=== PATIENT | female | born 1990 | race African-American/Black ===

== ENCOUNTER 2017-09-06 15:32 | Outpatient (CLI) | END 2017-09-06 17:00 | disposition home or self-care (01) ==

== ENCOUNTER 2017-09-09 12:00 | Inpatient (IN) | payer BC ==
--- NOTE | 2017-09-06 17:24 | PN ---
Triage Information Date/Time September 06, 2017 Reason for visit: Weeks of Gestation 40 weeks and 1 day /Para 1 para 0 Diabetes: none Hypertention: none Additional information 26-year-old with IUP at 40 weeks and 1 day with care with Dr. Bj reina was sent to labor and delivery for NST/BPP for postdates Patient denies any leaking of fluid, vaginal bleeding uterine contractions or decreased movement. Antepartum course was non-complicated Objective Heart Rate: 140's Contractions: None Exam GA: A&O, NAD Abdomen: Soft, Non tender, Fundal Height consistent with GA NST: Category 1, reactive BPP: 8/8 ARACELIS: 11.6 Results/Medications Imaging Results PROCEDURE: BIOPHYSICAL PROFILE CLINICAL INDICATION: Post dates TECHNIQUE: Transabdominal scan COMPARISON: None FINDINGS: Single live intrauterine , cephalic presentation, fundal placenta to the right of the maternal abdomen, grade II maturation. heart rate 160 3 beats per minute. Amniotic fluid index 11.2. Biophysical profile Gross body movement = 2 tone/reflexes = 2. Breathing = 2 Amniotic fluid index = 2 Total score 8/8 IMPRESSION: Biophysical score 8/8 RPTAT: AAOO Disposition: Discharge Assessment/Plan Postdates testing reassuring Labor precaution and kick counts and follow-up in 3 days with triage for repeat NST BPP discussed kick count discussed Patient verbalized understanding GRAYSON RODRIGUES MD Sep 06, 2017 17:24
[~2017-09-09] VITALS: Ht 157.5 cm; Wt 109.3 kg
[~2017-09-09 12:00] MED LIST: PREN-93 PO
[2017-09-09 12:16] VITALS: Ht 157.5 cm; Wt 109.3 kg
[2017-09-09 12:17] VITALS: BP 104/60; PULSE 136
--- NOTE | 2017-09-09 12:33 | RADRPT ---
PROCEDURE: US biophysical profile. CLINICAL INDICATION: Post dates. 40 weeks 4 days. TECHNIQUE: Multiple sonographic images of the uterus were obtained. The images were revi ewed on a PACS workstation. COMPARISON: No prior studies are available for comparison. FINDINGS: There is a single live intrauterine gestation. heart rate is 146 beats per minute. The position is cephalic. The placenta is fundal grade 1 with no abruption or previa. The ARACELIS is 6.8 cm. (Normal = 5-20 cm.) Breathing Movement: 2 Gross Body Movement: 2 Tone: 2 Qualitative Amniotic Fluid Volume: 2 TOTAL: 8 IMPRESSION: 1. The biophysical score is 8/8. RPTAT: QQ .Andrea Watkins MD, Date Time Electronically viewed and signed by .Andrea Watkins MD, on 09/09/2017 12:33 .R/
[2017-09-09] MEDS ORDERED: CARBOPROST 250 MCG INJ IM PRN (13:00)
[2017-09-09] MEDS ORDERED: METHYLERGONOVINE 0.2 MG INJ IM PRN (13:00)
[2017-09-09] MEDS ORDERED: LIDOCAINE 1% (MPF) 30 ML INJ INJ PRN (13:00)
[2017-09-09] MEDS ORDERED: OXYTOCIN 30 UNITS/LR 500 ML IV SCH ×2 (13:00)
[2017-09-09] MEDS ORDERED: OXYTOCIN 30 UNITS/LR 500 ML IV PRN (13:00)
[2017-09-09] MEDS ORDERED: MISOPROSTOL 200 MCG TAB PR PRN (13:00)
--- NOTE | 2017-09-09 13:00 | TRIAGE ---
OB Triage Datetime Report Generated by CPN: 09/09/2017 13:00 Datetime: 09/09/2017 12:45 Stage of : OB Triage Datetime: 09/09/2017 12:13 Stage of : OB Triage Assessment Type: Triage Maternal Assessment Level of Consciousness: Fully Conscious DTR's/Clonus: DTRs 2+; No Clonus Headache: Denies Blurred Vision: No Respiratory Effort: Unlabored; Regular Rhythm; Equal Expansion Breath Sounds, Left: Clear and Equal Breath Sounds, Right: Clear and Equal Nausea/Vomiting: Denies RUQ Epigastric Pain: Denies Facial Edema: None Temperature Route: Axillary Fall Risk Assessment History of Falling: (0) No Secondary Diagnosis: (0) No Ambulatory Aid: (0) Bedrest/Nurse Assist IV Therapy: (0) No Gait: (0) Normal/Bedrest/Immobile Mental Status: (0) Oriented to Own Ability Fall Score: 0 Fall Risk Score Definition: No Risk: No action required Labor Evaluation Frequency: 0 Monitor Mode: External Resting Tone [place]: Relaxed Heart Rate FHR Baseline Rate: 150 Monitor Mode: External US Variability: Moderate 6-25 bpm Accelerations: 10X10 Decelerations: None Category: Category I Pain Assessment Pain Scale: 0 Pain Presence: None/Denies Pain Type: N/A Pain Goal: 3 Pain Relief Measures: Comfort Measures Datetime: 09/09/2017 12:12 Time of Arrival: 09/09/2017 11:53 EGA: 40.4 Arrived By: Ambulatory Arrived From: Home Chief Complaint: POST DATES NST/BPP DENIES LEAKING, BLEEDING OR UC'S Movement: Present Contractions: Denies/Absent Rupture of Membranes: Denies Vaginal Bleeding: None Vaginal Discharge: Denies Recent Sexual Intercouse: Denies Abdominal Trauma: Not Applicable Patient Complaints: None Time Provider Notified: 09/09/2017 12:45 Provider Notified: delshad Initial Plan: MONITOR, BPP Datetime: 09/06/2017 15:50 Fall Score: 0 Fall Risk Score Definition: No Risk: No action required Datetime: 09/06/2017 15:47 EGA: 40.1
[2017-09-09] MEDS: LACTATED RINGER'S 1,000 ML IV SCH ×3 (13:52→19:04)
[2017-09-09] MEDS: MISOPROSTOL 25 MCG CAPSULE PO PRN ×2 (13:52→18:02)
[2017-09-09 14:20] LABS: ABNORMAL IP MESSAGE 1; BASOPHILS % 0.4 % (0.0-2.0); EOSINOPHILS % 0.2 % (0.0-7.0); HEMATOCRIT 29.9 % (37.0-47.0); HEMOGLOBIN 9.7 g/dl (12.0-16.0); LYMPHOCYTES # 0.4 10^3/ul (0.8-2.9); LYMPHOCYTES % 8.5 % (15.0-51.0); MEAN CORPUSCULAR HEMOGLOBIN 26.8 pg (29.0-33.0); MEAN CORPUSCULAR HGB CONC 32.4 g/dl (32.0-37.0); MEAN CORPUSCULAR VOLUME 82.6 fl (82.0-101.0); MEAN PLATELET VOLUME 9.7 fl (7.4-10.4); MONOCYTE # 0.3 10^3/ul (0.3-0.9); MONOCYTES % 6.9 % (0.0-11.0); NEUTROPHIL # 3.8 10^3/ul (1.6-7.5); NEUTROPHILS % 83.1 % (39.0-77.0); PLATELET COUNT 203 10^3/UL (140-415); RED BLOOD COUNT 3.62 10^6/ul (4.20-5.40); RED CELL DISTRIBUTION WIDTH 15.4 % (11.5-14.5); WHITE BLOOD COUNT 4.6 10^3/ul (4.8-10.8)
[2017-09-09 14:23] LABS: POSITIVE DIFF @See below
--- NOTE | 2017-09-09 14:41 | HP ---
Date/Time of Note Date/Time of Note DATE: 09/09/17 TIME: 14:39 OB - History Hx of Present Chief Complaint: antepartum testing Estimated Due Date: Sep 05, 2017 : 2 Para: 0 Spontaneous : 0 Therapeutic : 1 Care: Good Care Ultrasounds: Normal mid trimester US Obstetrical Complications: None Medical Complications: None Past Family/Social History * Past Medical, Surgical, Family and Obstetric Histories reviewed from chart. GBS Status: Negative OB Admission Exam Vital Signs Vital Signs Vital Signs Date Time Temp Pulse Resp B/P Pulse Ox O2 Delivery O2 Flow Rate FiO2 09/09/17 12:17 98.6 136 104/60 Physical Exam HEENT: WNL Heart: Rhythm Normal Lungs: Clear, Equal Abdomen: WNL Extremities: Normal Reflexes: Normal Cervical Dilatation: Fingertip Effacement: 50% Station: -2 Membranes: Intact Heart Rate: 120's Accelerations: Accelerations Present Decelerations: No Decelerations Varibility: Moderate Last 72 hours Lab Results CBC & BMP 09/09/17 13:41 OB Assessment/Plan Reason for admission: induction of labor Plan: Induction Induction Method: per Misoprostol Protocol JACI CINTRON MD Sep 09, 2017 14:41
[2017-09-09 14:54] LABS: INR 0.94; PROTIME 12.7 Sec (11.9-14.9)
[2017-09-09 14:55] LABS: PARTIAL THROMBOPLASTIN TIME 28.1 Sec (25.0-35.0)
[2017-09-09] MEDS: AMPICILLIN 2 GM/NS (PMX) 100 ML IVPB SCH ×2 (16:40→23:02)
[2017-09-09] MEDS ORDERED: LACTATED RINGER'S 1,000 ML IV ONE ×2 (19:30)
[2017-09-09] MEDS ORDERED: FENTAnyl 2MCG/ML-ROPIV 0.2% 100 ML ONE (19:59)
[2017-09-09] MEDS ORDERED: TRIMETHOBENZAMIDE 100 MG/ML VIAL IM PRN (22:00)
[2017-09-09] MEDS ORDERED: DIPHENHYDRAMINE 50 MG INJ IV PRN (22:00)
[2017-09-09] MEDS ORDERED: NALOXONE (0.4 MG/ML) INJ IV PRN (22:00)
[2017-09-09] MEDS ORDERED: ONDANSETRON 4 MG INJ IV PRN (22:00)
[2017-09-09] MEDS ORDERED: ACETAMINOPHEN 500 MG TAB ONE (22:56)
[2017-09-09] MEDS ORDERED: ACETAMINOPHEN 500 MG TAB PO ONE (22:57)
[2017-09-09] MEDS ORDERED: GENTAMICIN 120 MG/NS (PMX) 100 ML IVPB ONE (23:00)
[2017-09-09 23:58] LABS: ABNORMAL IP MESSAGE 1; BASOPHILS % 0.2 % (0.0-2.0); EOSINOPHILS % 0.2 % (0.0-7.0); HEMATOCRIT 27.2 % (37.0-47.0); HEMOGLOBIN 8.7 g/dl (12.0-16.0); LYMPHOCYTES # 0.5 10^3/ul (0.8-2.9); LYMPHOCYTES % 8.8 % (15.0-51.0); MEAN CORPUSCULAR VOLUME 84.5 fl (82.0-101.0); MEAN PLATELET VOLUME 9.8 fl (7.4-10.4); MONOCYTE # 0.4 10^3/ul (0.3-0.9); MONOCYTES % 6.6 % (0.0-11.0); NEUTROPHIL # 4.9 10^3/ul (1.6-7.5); NEUTROPHILS % 83.2 % (39.0-77.0); PLATELET COUNT 177 10^3/UL (140-415); RED BLOOD COUNT 3.22 10^6/ul (4.20-5.40); RED CELL DISTRIBUTION WIDTH 15.6 % (11.5-14.5); WHITE BLOOD COUNT 5.9 10^3/ul (4.8-10.8)
[2017-09-10 00:04] LABS: POSITIVE DIFF @See below
[2017-09-10] MEDS: FENTAnyl 2MCG/ML-ROPIV 0.2% 100 ML BAG EPI SCH ×4 (01:00→17:52)
[2017-09-10] MEDS ORDERED: OXYTOCIN 30 UNITS in LACTATED RINGER'S 497 ML IV SCH (03:30)
[2017-09-10] MEDS: AMPICILLIN 2 GM/NS (PMX) 100 ML IVPB SCH ×4 (06:25→17:54)
[2017-09-10] MEDS: LACTATED RINGER'S 1,000 ML IV SCH ×3 (06:37→19:41)
[2017-09-10] MEDS ORDERED: ACETAMINOPHEN 325 MG TAB ONE (11:17)
[2017-09-10] MEDS ORDERED: ACETAMINOPHEN 325 MG TAB PO PRN (11:30)
[2017-09-10] MEDS ORDERED: SALINE 0.65% 45 ML NAS SPRAY NASAL PRN (12:00)
[2017-09-10 12:21] LABS: ADD UMIC YES; UR ASCORBIC ACID NEGATIVE (NEGATIVE); UR BACTERIA FEW /HPF (NONE SEEN); UR BILIRUBIN (Dip) NEGATIVE (NEGATIVE); UR BLOOD (Dip) NEGATIVE (NEGATIVE); UR CLARITY SLIGHTLY CLOUDY (CLEAR); UR COLOR AMBER (YELLOW); UR GLUCOSE (Dip) NEGATIVE (NEGATIVE); UR KETONES (Dip) 2+ mg/dL (NEGATIVE); UR LEUKOCYTE ESTERASE (Dip) NEGATIVE Leu/ul (NEGATIVE); UR MUCUS FEW /HPF (NONE SEEN); UR NITRITE (Dip) NEGATIVE (NEGATIVE); UR RBC 3 /HPF (0-5); UR SQUAMOUS EPITHELIAL CELL FEW /HPF (FEW); UR TOTAL PROTEIN (Dip) 1+ mg/dl (NEGATIVE); UR UROBILINOGEN (Dip) 1+ mg/dL (NEGATIVE)
[2017-09-10] MEDS: GUAIFENESIN/DM 5ML CUP PO PRN ×2 (13:17→18:09)
[2017-09-10] MEDS ORDERED: FENTAnyl 50 MCG/ML VIAL ONE ×3 (17:52→23:20)
[2017-09-10] MEDS ORDERED: CEFAZOLIN 2 GM/50 ML (PMX) 50 ML IV SCH (21:00)
[2017-09-10] MEDS ORDERED: SODIUM CL BACTERIOSTATIC 30 ML INJ ONE (22:27)
[2017-09-10] MEDS ORDERED: LIDOCAINE 2%/EPI 30 ML INJ ONE (22:27)
[2017-09-10] MEDS ORDERED: PHENYLephrine (100 MCG/ML) 5ML SYG ONE (22:29)
--- NOTE | 2017-09-10 22:31 | QN ---
Documentation Comment Patient has progressed to 6-7 cm dilation and there has been no further progress. FHR 170's-180's Patient is for delivery by primary due to arrest of dilation and Category II tracing. Risks, benefits and alternatives were explained to the patient who stated she understood and gave informed consent for the procedure. JACI CINTRON MD Sep 10, 2017 22:31
[2017-09-10] MEDS ORDERED: DEXAMETHASONE 4 MG/ML 1 ML INJ ONE (22:45)
[2017-09-10] MEDS ORDERED: ONDANSETRON 4 MG INJ ONE (22:45)
[2017-09-10] MEDS ORDERED: MIDAZOLAM 1 MG/ML 2 ML INJ ONE (23:01)
[2017-09-10] MEDS ORDERED: morphine SULFATE/PF (10 MG/10 ML) INJ ONE (23:46)
--- NOTE | 2017-09-10 23:59 | OPPN ---
Date/Time of Note Date/Time of Note DATE: 09/10/17 TIME: 23:55 Operative Report Planned Procedure Procedure date Sep 10, 2017 Procedure(s) Primary Performed by Jaci Cintron MD [employer] D[employer] Mixer Dr Smiley Anesthesiologist: LALA VARGAS Pre-procedure diagnosis Arrest of dilation and Category II tracing Anesthesia Type: epidural Post-Procedure Post-procedure diagnosis Same Findings Live Baby [], Apgars [] and [], weight [], position [], [] presentation []cord. Estimated Blood Loss: other (700 ml) Specimen(s) Placenta Grafts/Implant(s) none Complication(s) none JACI CINTRON MD Sep 10, 2017 23:59
[2017-09-11] MEDS: AMPICILLIN 2 GM/NS (PMX) 100 ML IVPB SCH
[2017-09-11] MEDS ORDERED: morphine 4 MG/ML VIAL IV PRN
[2017-09-11] MEDS ORDERED: DIPHENHYDRAMINE 50 MG INJ IV PRN
[2017-09-11] MEDS ORDERED: morphine 2 MG INJ IV PRN
[2017-09-11] MEDS ORDERED: ONDANSETRON 4 MG INJ IV PRN
[2017-09-11] MEDS ORDERED: NALOXONE (0.4 MG/ML) INJ IV PRN
[2017-09-11] MEDS ORDERED: ZOLPIDEM 5 MG TAB PO PRN
--- NOTE | 2017-09-11 01:00 | OPR ---
DATE OF OPERATION: 09/10/2017 PREOPERATIVE DIAGNOSES: at term with arrest of dilation and category 2 heart tracin g. POSTOPERATIVE DIAGNOSES: at term with arrest of dilation and category 2 heart mahendra ng. OPERATION PERFORMED: Primary low transverse section. SURGEON: Jaci Coppola MD MANAGER SAFE: Dr. Quezada. ANESTHESIA: Epidural. ANESTHESIOLOGIST: Dr. Smith PROCEDURE: The patient was taken to operating room and placed on the operating table. After adequa te epidural anesthesia was given, the patient was placed in supine position. The area was prepared and draped in the usual sterile fashion. Epidural anesthesia was tested and was satisfactory. Usin g a scalpel, Pfannenstiel incision was made about 2 fingerbreadths above the symphysis pubis. The i ncision was carried to the fascia. The fascia was incised and extended bilaterally with Bright scisso rs. Two Grady's were used to separate the fascia from the muscle. The muscle was dissected down t o peritoneum. The peritoneum was bluntly entered. Using a scalpel, a small transverse incision was made in the lower segment of the uterus. Upon entering the uterine cavity, bandage scissors were i nserted to extend the incision bilaterally, curved up. Baby was delivered from occiput posterior po sition. After suctioning clear the amniotic fluid, the baby was handed off to the customer success director in attendance. Apgars were 8 and 9. The placenta was delivered without difficulty. The uterus was cl osed with #1 Monocryl continuous locked. After assuring hemostasis, both ovaries and tubes were ins pected, all looked normal. The peritoneum was closed with 2-0 Vicryl continuous. The fascia was cl osed with #1 Vicryl continuous in 2 segments. Subcutaneous tissue was reapproximated with 2-0 plain . The skin was closed with cameron. ESTIMATED BLOOD LOSS: 700 mL. COUNTS: All counts were correct. Dictated By: JACI COPPOLA MD GD/NTS Conf#: [id number] DID#: [id number] CC: LARY QUEZADA MD;*EndCC*
[2017-09-11 03:00] VITALS: BP 132/71; PULSE 74; RESP 20
[2017-09-11] MEDS ORDERED: OXYTOCIN 30 UNITS/LR 500 ML IV SCH (03:25)
[2017-09-11] MEDS ORDERED: CARBOPROST 250 MCG INJ IM PRN (03:30)
[2017-09-11] MEDS ORDERED: OXYCODONE/ACETAMINOPHEN (5/325) TAB PO PRN (03:30)
[2017-09-11] MEDS ORDERED: METHYLERGONOVINE 0.2 MG INJ IM PRN (03:30)
[2017-09-11] MEDS ORDERED: LANOLIN 7 GM TUBE TOP PRN (03:30)
[2017-09-11] MEDS ORDERED: OXYTOCIN 30 UNITS/LR 500 ML IV PRN (03:30)
[2017-09-11] MEDS ORDERED: MISOPROSTOL 200 MCG TAB PR PRN (03:30)
[2017-09-11] MEDS: LACTATED RINGER'S 1,000 ML IV SCH ×3 (04:34→17:26)
[2017-09-11 04:40] VITALS: BP 120/71; PULSE 64; RESP 20
[2017-09-11] MEDS: KETOROLAC 30 MG INJ IV PRN ×2 (04:48→17:27)
[2017-09-11] MEDS: IBUPROFEN 800 MG TAB PO SCH ×3 (06:00→22:15)
[2017-09-11] MEDS: PIPER-TAZO 3.375 GM IV (PMX) 50 ML IVPB SCH ×3 (06:54→17:26)
[2017-09-11 08:30] VITALS: BP 102/57; PULSE 83; RESP 18
[2017-09-11 09:03] LABS: BASOPHILS % 0.1 % (0.0-2.0); HEMATOCRIT 23.4 % (37.0-47.0); HEMOGLOBIN 7.4 g/dl (12.0-16.0); LYMPHOCYTES # 0.8 10^3/ul (0.8-2.9); LYMPHOCYTES % 7.8 % (15.0-51.0); MEAN CORPUSCULAR HEMOGLOBIN 26.8 pg (29.0-33.0); MEAN CORPUSCULAR HGB CONC 31.6 g/dl (32.0-37.0); MEAN CORPUSCULAR VOLUME 84.8 fl (82.0-101.0); MEAN PLATELET VOLUME 9.9 fl (7.4-10.4); MONOCYTE # 0.4 10^3/ul (0.3-0.9); MONOCYTES % 4.4 % (0.0-11.0); NEUTROPHIL # 8.7 10^3/ul (1.6-7.5); NEUTROPHILS % 87.4 % (39.0-77.0); PLATELET COUNT 177 10^3/UL (140-415); RED BLOOD COUNT 2.76 10^6/ul (4.20-5.40); RED CELL DISTRIBUTION WIDTH 15.7 % (11.5-14.5)
[2017-09-11] MEDS: SENNA/DOCUSATE NA (8.6MG/50MG) TAB PO SCH ×2 (09:05→20:53)
--- NOTE | 2017-09-11 15:12 | PN ---
Date/Time of Note Date/Time of Note DATE: 09/11/17 TIME: 15:06 OB Subjective Subjective Subjective Post C section day 1 Doing Well Afebrile Ambulatory Chest Clear Breasts are soft , Nipples are intact Abdomen is soft Fundus is firm Moderate amount of lochia Incision is clean ,No evidence of infection No calf tenderness No ankle edema Somewhat anemic Hb 7.7, Hct ;23.4 Laboratory Tests Test 09/11/17 08:25 White Blood Count 10.010^3/ul Red Blood Count 2.7610^6/ul Hemoglobin 7.4g/dl Hematocrit 23.4% Mean Corpuscular Volume 84.8fl Mean Corpuscular Hemoglobin 26.8pg Mean Corpuscular Hemoglobin Concent 31.6g/dl Red Cell Distribution Width 15.7% Platelet Count 70620^3/UL Mean Platelet Volume 9.9fl Neutrophils % 87.4% Lymphocytes % 7.8% Monocytes % 4.4% Eosinophils % 0.0% Basophils % 0.1% Nucleated Red Blood Cells % 0.0/100WBC Neutrophils # 8.710^3/ul Lymphocytes # 0.810^3/ul Monocytes # 0.410^3/ul Eosinophils # 0.010^3/ul Basophils # 0.010^3/ul Nucleated Red Blood Cells # 0.010^3/ul Current Medications Medications (Trade) Dose Ordered Sig/Tin Route PRN Reason Start Time Stop Time Status Last Admin Dose Admin Lactated Ringer's (Lr) 1,000 ml @ 125 mls/hr Q8H IV 09/09/17 13:00 09/11/17 03:35 DC 09/10/17 19:41 Misoprostol (Cytotec 25 Mcg Capsule) 50 mcg Q4 PRN PO LABOR INDUCTION 09/09/17 13:00 09/11/17 03:35 DC 09/09/17 18:02 Lidocaine 30 ml 30 ml ONCE PRN INJ EPISIOTOMY/TEARING 09/09/17 13:00 09/11/17 03:35 DC Oxytocin/Lactated Ringer's 500 ml @ 500 mls/hr ONCE POST IV 09/09/17 13:00 09/11/17 03:35 DC 09/10/17 04:17 Oxytocin/Lactated Ringer's 500 ml @ 125 mls/hr POST IV 09/09/17 13:00 09/11/17 03:35 DC 09/11/17 00:30 Oxytocin/Lactated Ringer's 500 ml @ 0 mls/hr ONCE PRN IV For Hemorrhage Management 09/09/17 13:00 09/11/17 03:35 DC Methylergonovine Maleate (Methergine) 0.2 mg ONCE PRN IM VAGINAL BLEEDING 09/09/17 13:00 09/11/17 03:35 DC Carboprost Tromethamine (Hemabate) 250 mcg ONCE PRN IM VAGINAL BLEEDING 09/09/17 13:00 09/11/17 03:35 DC Misoprostol 1000 mcg 1,000 mcg ONCE PRN MI VAGINAL BLEEDING 09/09/17 13:00 09/11/17 03:35 DC Ampicillin 100 ml @ 100 mls/hr Q6 IVPB 09/09/17 17:30 09/11/17 03:35 DC 09/10/17 17:54 Lactated Ringer's 1,000 ml @ 1,000 mls/hr Q1H ONCE IV 09/09/17 19:30 09/09/17 20:29 DC 09/09/17 20:03 Lactated Ringer's 1,000 ml @ 1,000 mls/hr Q1H ONCE IV 09/09/17 19:30 09/09/17 20:29 DC 09/09/17 22:40 Fentanyl/ Ropivacaine 100 ml @ ud STK-MED ONCE .ROUTE 09/09/17 19:59 09/09/17 20:00 DC Naloxone HCl (Narcan) 0.1 mg Q2M PRN IV FOR RESP RATE 8 OR LESS 09/09/17 22:00 09/10/17 21:59 DC Diphenhydramine HCl (Benadryl) 25 mg Q6H PRN IV ITCHING 09/09/17 22:00 09/10/17 21:59 DC Ondansetron HCl (Zofran Inj) 4 mg Q6H PRN IV NAUSEA AND/OR VOMITING 09/09/17 22:00 09/10/17 21:59 DC Trimethobenzamide HCl (Tigan) 200 mg Q6H PRN IM NAUSEA AND/OR VOMITING 09/09/17 22:00 09/10/17 21:59 DC Fentanyl/ Ropivacaine 100 ml EPIDURAL INFUSION EPI 09/09/17 22:00 09/11/17 03:35 DC 09/10/17 17:52 Acetaminophen 1000 mg 1,000 mg ONCE ONCE PO 09/09/17 22:57 09/09/17 22:58 DC 09/09/17 23:02 Gentamicin Sulfate (Gentamicin) 100 ml @ 200 mls/hr ONCE ONCE IVPB 09/09/17 23:00 09/09/17 23:29 DC 09/10/17 00:55 Acetaminophen 500 mg 500 mg STK-MED ONCE .ROUTE 09/09/17 22:56 09/09/17 22:57 DC Oxytocin/Lactated Ringer's (Oxytocin/Lr) 500 ml @ 0 mls/hr Q0M IV 09/10/17 03:30 09/11/17 03:30 DC Acetaminophen (Tylenol Tab) 650 mg Q4H PRN PO PAIN AND OR ELEVATED TEMP 09/10/17 11:30 09/11/17 03:35 DC 09/10/17 11:21 Acetaminophen (Tylenol Tab) 325 mg STK-MED ONCE .ROUTE 09/10/17 11:17 09/10/17 11:18 DC Guaifenesin/ Dextromethorphan (Robitussin Dm Liquid Cup) 10 ml Q4H PRN PO COUGH 09/10/17 11:30 09/11/17 03:35 DC 09/10/17 18:09 Sodium Chloride (Deep Sea) 1 spray Q2 PRN NASAL NASAL CONGESTION 09/10/17 12:00 09/11/17 03:35 DC 09/10/17 13:18 Fentanyl 100 mcg 100 mcg STK-MED ONCE .ROUTE 09/10/17 17:52 09/10/17 17:53 DC Cefazolin Sodium/ Dextrose (Ancef 2 Gm/50 ml (Pmx)) 50 ml @ 100 mls/hr ONCE IV 09/10/17 21:00 09/11/17 03:35 DC Lidocaine/ Epinephrine (Xylocaine 2%/ Epi) 30 ml STK-MED ONCE .ROUTE 09/10/17 22:27 09/10/17 22:28 DC Fentanyl (Sublimaze) 100 mcg STK-MED ONCE .ROUTE 09/10/17 22:27 09/10/17 22:28 DC Sodium Chloride (Sodium Cl Bacteriostatic) 30 ml STK-MED ONCE .ROUTE 09/10/17 22:27 09/10/17 22:28 DC Phenylephrine HCl (Quinten-Synephrine Inj Syg) 500 mcg STK-MED ONCE .ROUTE 09/10/17 22:29 09/10/17 22:30 DC Dexamethasone (Decadron) 4 mg STK-MED ONCE .ROUTE 09/10/17 22:45 09/10/17 22:46 DC Ondansetron HCl (Zofran Inj) 4 mg STK-MED ONCE .ROUTE 09/10/17 22:45 09/10/17 22:46 DC Midazolam HCl (Versed) 2 mg STK-MED ONCE .ROUTE 09/10/17 23:01 09/10/17 23:02 DC Fentanyl (Sublimaze) 100 mcg STK-MED ONCE .ROUTE 09/10/17 23:20 09/10/17 23:21 DC Morphine Sulfate (Duramorph) 10 mg STK-MED ONCE .ROUTE 09/10/17 23:46 09/10/17 23:47 DC Naloxone HCl (Narcan) 0.1 mg Q2M PRN IV FOR RESP RATE 8 OR LESS 09/11/17 00:00 09/11/17 23:59 Ketorolac Tromethamine (Toradol) 30 mg Q6H PRN IV PAIN 09/11/17 00:00 09/11/17 23:59 09/11/17 04:48 Morphine Sulfate (morphine) 2 mg Q3H PRN IV PAIN LEVEL 1-5 09/11/17 00:00 09/11/17 23:59 Morphine Sulfate (morphine) 4 mg Q3H PRN IV PAIN LEVEL 6-10 09/11/17 00:00 09/11/17 23:59 09/11/17 00:26 Diphenhydramine HCl (Benadryl) 25 mg Q6H PRN IV ITCHING 09/11/17 00:00 09/11/17 23:59 Ondansetron HCl (Zofran Inj) 4 mg Q6H PRN IV NAUSEA AND/OR VOMITING 09/11/17 00:00 09/11/17 23:59 Zolpidem Tartrate (Ambien) 5 mg HS MAY REPEAT X 1 PRN PO INSOMNIA 09/11/17 00:00 09/11/17 23:59 Miscellaneous Information Duramorph: 4 mg Epidu... GIVEN XX 09/11/17 00:00 09/11/17 03:35 DC Lactated Ringer's 1,000 ml @ 125 mls/hr Q8H IV 09/11/17 03:25 Oxytocin/Lactated Ringer's 500 ml @ 50 mls/hr Q10H IV 09/11/17 03:25 09/11/17 13:24 DC 09/11/17 04:33 Oxycodone/ Acetaminophen (Percocet (5/ 325)) 1 tab Q4H PRN PO PAIN LEVEL 4-6 09/11/17 03:30 Oxycodone/ Acetaminophen (Percocet (5/ 325)) 2 tab Q4H PRN PO PAIN LEVEL 7-10 09/11/17 03:30 Ibuprofen (Motrin) 800 mg Q8 PO 09/11/17 06:00 Simethicone (Mylicon) 160 mg Q8H PRN PO DISTENSION/GAS/BLOATING 09/11/17 03:30 Senna/Docusate Sodium (Senokot-S) 1 tab BID PO 09/11/17 09:00 09/11/17 09:05 Lanolin (Inl-M-Xoxvai) 1 applic BEDSIDE MEDICATION PRN TOP BEDSIDE FOR EFRAIN TO NIPPLES 09/11/17 03:30 09/11/17 12:42 Diphtheria/ Tetanus/Acell Pertussis 0.5 ml 0.5 ml ONCE ONCE IM* 09/13/17 09:00 09/13/17 09:01 Oxytocin/Lactated Ringer's 500 ml @ 0 mls/hr ONCE PRN IV For Hemorrhage Management 09/11/17 03:30 Methylergonovine Maleate (Methergine) 0.2 mg ONCE PRN IM VAGINAL BLEEDING 09/11/17 03:30 Carboprost Tromethamine (Hemabate) 250 mcg ONCE PRN IM VAGINAL BLEEDING 09/11/17 03:30 Misoprostol 1000 mcg 1,000 mcg ONCE PRN MI VAGINAL BLEEDING 09/11/17 03:30 Piperacillin Sod/ Tazobactam Sod (Zosyn 3.375gm/ 50 ml (Pmx)) 50 ml @ 100 mls/hr Q6 IVPB 09/11/17 06:00 09/11/17 12:42 Guaifenesin/ Dextromethorphan (Robitussin Dm Liquid Cup) 10 ml Q4H PRN PO COUGH 09/11/17 14:30 New born is doing well, Breast feeding ROSEMARIE SALAS MD Sep 11, 2017 15:12
[2017-09-11] MEDS: GUAIFENESIN/DM 5ML CUP PO PRN ×2 (16:04→20:53)
[2017-09-11 16:30] VITALS: BP 109/68; RESP 18
[2017-09-11 20:26] VITALS: BP 102/53; PULSE 102; RESP 20
[2017-09-12] MEDS: PIPER-TAZO 3.375 GM IV (PMX) 50 ML IVPB SCH ×4 (00:12→18:01)
[2017-09-12 00:20] VITALS: BP 86/66; PULSE 89; RESP 18
[2017-09-12] MEDS: OXYCODONE/ACETAMINOPHEN (5/325) TAB PO PRN ×2 (01:46→08:02)
[2017-09-12] MEDS: GUAIFENESIN/DM 5ML CUP PO PRN ×4 (01:52→21:26)
[2017-09-12] MEDS: LACTATED RINGER'S 1,000 ML IV SCH ×3 (01:54→19:25)
[2017-09-12 04:00] VITALS: BP 97/48; PULSE 90; RESP 20
[2017-09-12] MEDS: IBUPROFEN 800 MG TAB PO SCH ×3 (06:12→21:26)
[2017-09-12 08:02] VITALS: BP 99/59; PULSE 101; RESP 20
[2017-09-12] MEDS: SENNA/DOCUSATE NA (8.6MG/50MG) TAB PO SCH ×2 (09:00→21:00)
[2017-09-12] MEDS: FERROUS SULFATE (EC) 325 MG TAB PO SCH ×3 (09:44→21:22)
[2017-09-12 16:00] VITALS: BP 98/60; RESP 18
[2017-09-12 16:04] VITALS: BP 98/60; PULSE 90; RESP 18
--- NOTE | 2017-09-12 19:05 | QN ---
Documentation Comment No complaint Afebrile VSS Abdomen soft ND POD #2 Stable Continue present care. JACI CINTRON MD Sep 12, 2017 19:05
[2017-09-12 19:50] VITALS: BP 103/60; PULSE 96; RESP 18
[2017-09-13] VITALS: BP 112/65; PULSE 94; RESP 16
[2017-09-13] MEDS: PIPER-TAZO 3.375 GM IV (PMX) 50 ML IVPB SCH ×3 (00:06→12:57)
[2017-09-13] MEDS: GUAIFENESIN/DM 5ML CUP PO PRN (01:27)
[2017-09-13] MEDS: LACTATED RINGER'S 1,000 ML IV SCH (03:25)
[2017-09-13 04:15] VITALS: BP 100/56; PULSE 92; RESP 18
[2017-09-13] MEDS: IBUPROFEN 800 MG TAB PO SCH ×2 (06:06→12:57)
[2017-09-13 08:30] VITALS: BP 111/64; PULSE 96; RESP 20
[2017-09-13] MEDS: SENNA/DOCUSATE NA (8.6MG/50MG) TAB PO SCH (09:00)
[2017-09-13] MEDS ORDERED: DIPHTH/TET/ACEL PERTUSS (ADULT) 0.5 ML VIAL IM* ONE (09:00)
[2017-09-13] MEDS: FERROUS SULFATE (EC) 325 MG TAB PO SCH ×2 (09:40→12:56)
--- NOTE | 2017-09-13 14:46 | DS ---
Date/Time of Note Date/Time of Note DATE: 09/13/17 TIME: 14:45 Obstetrical Discharge Record Final Diagnosis Final Diagnosis: Term delivered Section Section: Primary Primary Indication Category II tracing Condition on Discharge Physical Assessment Voiding: Yes Bowel Movement: Yes Breast: Soft, non-tender, Filling Fundus: Firm Abdomen and Incision: Incision intact Calf Tenderness: No Patient Condition: Stable JACI CINTRON MD Sep 13, 2017 14:46
== END 2017-09-13 17:00 | disposition home or self-care (01) | DRG 765 ==
LOC: OBT 12:00 → L-D 12:00 → OBT 12:35 → PP1 09-11 02:41
PROVIDERS: ADMIT Obstetrics & Gynecology; ATTEND Obstetrics & Gynecology
PROC: 10D00Z1 Extraction of Products of Conception, Low, Open Approach (ICD-10-PCS; principal; 2017-09-10)
DX: O48.0 Post-term pregnancy (principal); Z68.41 Body mass index [BMI] 40.0-44.9, adult; Z37.0 Single live birth; O76 Abnormality in fetal heart rate and rhythm complicating labor and delivery; O62.0 Primary inadequate contractions; Z3A.40 40 weeks gestation of pregnancy; O99.214 Obesity complicating childbirth; E66.01 Morbid (severe) obesity due to excess calories
CPT/HCPCS: 62319; 76818; 81001; 85025; 85610; 85730; 86592; 86850; 86885; 86900; 86901; 87086; 87340; 88307; 90715; 94760; 99464; G0463; J0290; J0690; J1100; J1580; J1885; J2250; J2270; J2274; J2370; J2405; J2543; J2590; J2790; J3010; J7120

== ENCOUNTER 2017-09-15 20:29 | Emergency (ER) | payer SELFPAY ==
[~2017-09-15] VITALS: Ht 167.6 cm; Wt 114.5 kg
[2017-09-15 20:51] VITALS: Ht 167.6 cm; Wt 114.5 kg
== END 2017-09-16 02:22 | disposition left against medical advice (07) ==
LOC: FTE 20:29
DX: Z53.21 Procedure and treatment not carried out due to patient leaving prior to being seen by health care provider (principal)

== ENCOUNTER 2017-09-17 12:28 | Inpatient (IN) | END 2017-09-19 16:15 | disposition home or self-care (01) | DRG 776 ==